=== PATIENT | female | born 1970 | race Caucasian/White ===

== ENCOUNTER 2017-05-21 12:10 | Emergency (ER) | payer OTHER ==
[2017-05-21 14:29] VITALS: BP 0/0
== END 2017-05-21 14:28 | disposition left against medical advice (07) ==
LOC: ED 12:10
DX: S69.91XA Unspecified injury of right wrist, hand and finger(s), initial encounter (principal); X58.XXXA Exposure to other specified factors, initial encounter; Y92.9 Unspecified place or not applicable; Z53.21 Procedure and treatment not carried out due to patient leaving prior to being seen by health care provider
CPT/HCPCS: 99281

== ENCOUNTER 2019-09-03 10:07 | Observation (INO) | payer SELFPAY ==
--- NOTE | 2019-09-03 10:38 | ED ---
HPI Chest Pain - HPI Summary HPI Summary: This patient is a 48 year old female presenting to [facility] with a cheif complaint of bilateral arm pain. She states 2 days ago she experienced chest pain and diaphoresis with left arm pain throughout her arm. She states the chest pain and diaphoresis resolved but the arm pain remains, with the pain now in both shoulders and arms. She rates her pain 6/10 in severity. She denies headache and neck pain. No Home Medications - History of Current Complaint Chief Complaint: EDExtremityUpper Time Seen by Provider: 09/03/19 10:31 Hx Obtained From: Patient Onset/Duration: Started Days Ago Timing: Lasting Days Pain Intensity: 6 Pain Scale Used: 0-10 Numeric Associated Signs and Symptoms: Positive: Chest Pain, Diaphoresis - Allergy/Home Medications Allergies/Adverse Reactions: Allergies Allergy/AdvReac Type Severity Reaction Status Date / Time codeine Allergy Unknown Verified 09/03/19 10:38 Reaction Details diphenhydramine Allergy Unknown Verified 09/03/19 10:38 [From Benadryl] Reaction Details orange (food color) Allergy Headache Verified 09/03/19 16:21 Home Medications: Home Medications NK [No Home Medications Reported] 09/03/19 [History Confirmed 09/03/19] PMH/Surg Hx/FS Hx/Imm Hx Cardiovascular History: Reports: Other Cardiovascular Problems/Disorders - Heart murmur EENT History: Denies: Hx Deafness Neurological History: Denies: Hx Dementia - Surgical History Surgery Procedure, Year, and Place: Cholecystectomy Infectious Disease History: No Infectious Disease History: Denies: Traveled Outside the [place] in Last 30 Days - Family History Known Family History: Negative: Seizure Disorder - Social History Alcohol Use: None Substance Use Type: Reports: None Smoking Status (MU): Never Smoked Tobacco Review of Systems Positive: Skin Diaphoresis Positive: Chest Pain - s Positive: Other - Bilateral upper extremity pain. Neg: Neck pain. Negative: Headache All Other Systems Reviewed And Are Negative: Yes Physical Exam - Summary Physical Exam Summary: VITAL SIGNS: Reviewed. GENERAL: Patient is an obese FEMALE who is lying comfortable in the stretcher. Patient is in distress secondary to pain. HEAD AND FACE: No signs of trauma. No ecchymosis, hematomas or skull depressions. No sinus tenderness. EYES: PERRLA, EOMI x 2, No injected conjunctiva, no nystagmus. EARS: Hearing grossly intact. Ear canals and tympanic membranes are within normal limits. MOUTH: Oropharynx within normal limits. NECK: Supple, trachea is midline, no adenopathy, no JVD, no carotid bruit, no c- spine tenderness, neck with full ROM. CHEST: Symmetric, no tenderness at palpation. LUNGS: Clear to auscultation bilaterally. No wheezing or crackles. CVS: Regular rate and rhythm, S1 and S2 present, no murmurs or gallops appreciated. ABDOMEN: Soft, non-tender. No signs of distention. No rebound, no guarding, and no masses palpated. Bowel sounds are normal. EXTREMITIES: FROM in all major joints, no edema, no cyanosis or clubbing. Good pulses, good capillary refill, and good pulses in the bilateral upper extremities. NEURO: Alert and oriented x 3. No acute neurological deficits. Speech is normal and follows commands. SKIN: Dry and warm. Triage Information Reviewed: Yes Vital Signs On Initial Exam: Initial Vitals Temp Pulse Resp BP Pulse Ox 97.5 F 88 20 95/61 98 09/03/19 10:22 09/03/19 10:22 09/03/19 10:22 09/03/19 10:22 09/03/19 10:22 Vital Signs Reviewed: Yes Procedures - Sedation Patient Received Moderate/Deep Sedation with Procedure: No Diagnostics - Vital Signs Vital Signs Temp Pulse Resp BP Pulse Ox 09/03/19 10:22 97.5 F 86 28 95/61 93 - Laboratory Result Diagrams: 09/03/19 16:19 09/03/19 16:19 Lab Statement: Any lab studies that have been ordered have been reviewed, and results considered in the medical decision making process. - CT Cervical Spine CT Interpretation Completed By: Radiologist Summary of CT Findings: Nonspecific straightening of the normal cervical lordosis and mild loss of interverebral disc height in this otherwise nonacute, noncontrast CT of the cervical spine. ED Provider has reviewed this report. CTA Chest/Abd/Pel CT Interpretation Completed By: Radiologist Summary of CT Findings: 1. No pathologic aneurysm or acute dissecction of the aorta or large branch vessels. 2. Hepatic steatosis. ED Provider has reviewed this report. - EKG 1014 Cardiac Rate: NL - 82 BPM EKG Rhythm: Sinus Rhythm Summary of EKG Findings: No ST elevations. ED Physician has reviewed and interpreted this EKG. Chest Pain Course/Dx - Course Assessment/Plan: This patient is a 48 year old female presenting to [facility] with a chief complaint of bilateral arm pain. She states 2 days ago she experienced chest pain and diaphoresis with left arm pain throughout her arm. She states the chest pain and diaphoresis resolved but the arm pain remains, with the pain now in both shoulders and arms. She rates her pain 6/10 in severity. She denies headaches and neck pain. In the ED course the patient was placed in a urologist, IV access was obtained, IV fluids started and she was given aspirin for chest pressure. Blood test w/o a significant abnormality except for sodium 134, glucose 141, troponin 0.05, CRP is 14.5. EKG shows a normal sinus rhythm without any ST elevation. Cervical spine CT IMPRESSION: NONSPECIFIC STRAIGHTENING OF THE NORMAL CERVICAL LORDOSIS AND MILD LOSS OF. INTERVERTEBRAL DISC HEIGHT IN THIS OTHERWISE NONACUTE, NONCONTRAST CT OF THE CERVICAL. SPINE. CTA chest chest abdomen and pelvis IMPRESSION: 1. No pathologic aneurysm or acute dissection of the aorta or large branch vessels. 2. Hepatic steatosis. I discuss my physical exam and test results with Dr. Denton from the hospitalist services and he agrees to admit the patient to his services. The patient is hemodynamically stable alert and oriented x 3. - Chest Pain Differential Diagnosis/HQI/PQRI: Acute OR, Angina, CHF, Chest Wall, GI Disease, Lower Respiratory Infection, Pulmonary Edema - Diagnoses Provider Diagnoses: Chest pain, Elevated troponin Discharge ED - Sign-Out/Discharge Documenting (check all that apply): Patient Departure - Admission, accepted by Dr. Denton, Hospitalist - Discharge Plan Condition: Stable Disposition: ADMITTED TO [facility] - Billing Disposition and Condition Condition: STABLE Disposition: Admitted to [facility] - Attestation Statements Document Initiated by Scribe: Yes Documenting Scribe: Tuan Figueredo Provider For Whom Rishi is Documenting (Include Credential): Jeison Acosta MD Scribe Attestation: Tuan Crockett, scribed for Jeison Acosta MD on 09/03/19 at 2101. Scribe Documentation Reviewed: Yes Provider Attestation: The documentation as recorded by the Tuan angel accurately reflects the service I personally performed and the decisions made by me, Jeison Acosta MD Status of Scribe Document: Viewed
[2019-09-03 10:42] LABS: ABS Lymphocytes 1.5 10^3/ul (1.0-4.8); ABS Monocytes 0.5 10^3/ul (0-0.8); ABS Neutrophils 6.4 10^3/ul (1.5-7.7); Eosinophil % 0.4 %; Hematocrit 46 % (35-47); Hemoglobin 15.8 g/dL (12.0-16.0); Mean Corpuscular HGB Conc 34 g/dL (31-36); Mean Corpuscular Hemoglobin 32 pg (27-31); Mean Corpuscular Volume 94 fL (80-97); Nucleated Red Blood Cells % 0.2; Platelet Count 265 10^3/uL (150-450); Red Cell Distribution Width 15 % (10-15); White Blood Count 8.5 10^3/uL (3.5-10.8)
[2019-09-03 10:51] LABS: INR 0.98 (0.82-1.09)
[2019-09-03 10:58] LABS: ALT 25 U/L (7-52); AST 17 U/L (13-39); Albumin 4.3 g/dL (3.2-5.2); Albumin/Globulin Ratio 1.5 (1-3); Alkaline Phosphatase 95 U/L (34-104); Anion Gap 7 mmol/L (2-11); Blood Urea Nitrogen 12 mg/dL (6-24); CO2 Carbon Dioxide 24 mmol/L (22-32); Calcium 9.7 mg/dL (8.6-10.3); Chloride 103 mmol/L (101-111); EGFR African American 91.9 (>60); EGFR Non-African American 75.9 (>60); Globulin 2.9 g/dL (2-4); Glucose 141 mg/dL (70-100); Potassium 4.2 mmol/L (3.5-5.0); Sodium 134 mmol/L (135-145); Total Protein 7.2 g/dL (6.4-8.9)
[2019-09-03 11:04] LABS: Troponin I 0.05 ng/mL (<0.03)
[2019-09-03] MEDS ORDERED: NS 0.9% 1000 ML** 1,000 ML IV.FLUID IV ONE (11:35)
[2019-09-03 11:48] LABS: Activated Partial Thrombo Time 32.7 seconds (26.0-38.0)
[2019-09-03 11:53] LABS: C Reactive Protein 14.54 mg/L (<8.01); Creatine Kinase 57 U/L (10-223)
[2019-09-03] MEDS ORDERED: Iohexol 350* (CONTRAST) 500 ML MDV IV ONE (11:55)
[2019-09-03] MEDS ORDERED: Aspirin 81 mg CHEW TAB* 81 MG TAB.CHEW PO ONE (11:57)
[2019-09-03 11:58] LABS: CKMB ng/mL 1.8 ng/mL (0.6-6.3)
[2019-09-03] MEDS ORDERED: Acetaminophen TAB* 325 MG PO PRN (14:16)
[2019-09-03 14:18] LABS: Troponin I 0.08 ng/mL (<0.03)
[2019-09-03] MEDS ORDERED: Enoxaparin(*) 40 MG/0.4 ML SYR SUBCUT SCH (15:00)
[2019-09-03] MEDS ORDERED: Heparin DRIP 25,000 UNITS(*) 25,000 UNITS/500 ML BAG IV SCH (15:00)
--- NOTE | 2019-09-03 16:17 | HP ---
CC: Dr. Maurice * HISTORY AND PHYSICAL: DATE OF ADMISSION: 09/03/19 PRIMARY CARE PROVIDER: Dr. Maurice. ATTENDING PHYSICIAN: Dr. Denton * (dictated by SHERIN Humphreys). CHIEF COMPLAINT: 1. Chest pressure. 2. Bilateral upper extremity pain. HISTORY OF PRESENT ILLNESS: Ms. Pguh is a 48-year-old female with a past medical history of tobacco abuse, CVA x2, obesity, who presented to the ER today with complaints of chest pressure that radiated to bilateral upper extremities. The patient states that 2 days ago she was driving home and she experienced sudden onset left-sided chest pain that lasted approximately 2 minutes without associated shortness of breath or diaphoresis. Pain went away within 2 minutes without any intervention and she had been chest pain free until today when she was sitting on her couch and she started to experience bilateral shoulder and upper extremity pain. She has associated chest pressure , diaphoresis, and weakness without nausea or shortness of breath. Her pain was not positional. She states that her pain was so bad that she called her mother, who then brought her to the ER. She reports that this episode lasted approximately 4 hours and was relieved when she was given 324 mg of aspirin in the ER. She reports that the area is nontender to palpation, and at the time, is unsure if the pain worsened with deep breathing. She reported the pain is a tugging pain and reported that only time an aspirin resolved the pain. She reports that she has not experienced episodes like this in the past. The patient 's HEART score is 4, placing her at moderate risk with 12% to 16.6% risk of MACE. In the ER, the patient received a full workup. CBC was unremarkable. Chemistry shows an elevated glucose of 141. Troponins are 0.05, 0.08. She has a mildly elevated CRP of 14.54, but is afebrile without leukocytosis or symptoms of infection. EKG shows T inversion in lateral leads. CT of the cervical spine is unremarkable. CT of the chest, abdomen, and pelvis unremarkable except for a hepatic steatosis. Notably, the CTA was not done according to PE protocol, although there are reportedly no definite filling defects of the mainstem or lobar pulmonary arteries. The patient received 324 mg of oral aspirin in the ER. The hospitalist team was asked to evaluate the patient for admission. PAST MEDICAL HISTORY: 1. The patient reports she has a history of palpitations and history of what sounds like regurgitation that she reports "went away" on its own without intervention. 2. CVA x2, last in 2017. 3. Obesity. 4. Tobacco abuse. PAST SURGICAL HISTORY: Cholecystectomy and tubal ligation. HOME MEDICATIONS: None. DRUG ALLERGIES: CODEINE, DIPHENHYDRAMINE. FAMILY HISTORY: No family history of CAD, CVA, diabetes, cancer. SOCIAL HISTORY: The patient smokes half a pack cigarettes daily. She has approximately 32-pack year smoking history. She rarely uses alcohol, approximately once per year. She does not use illicit drugs. 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 She has 3 children and lives with her . In the event that she is unable to make her own medical decisions, she has appointed her mother, Shannan Strong, to be her surrogate decision maker. REVIEW OF SYSTEMS: A 14-point review of systems has been performed and all the pertinent positives and negatives are in the HPI. All other systems are negative. PHYSICAL EXAMINATION GENERAL: Ms. Pugh is a well-developed, well-nourished, obese middle-aged white woman, who is sitting up in bed. She appears to be in no acute distress. She is pleasant and cooperative and appropriate. She appears comfortable. HEENT: PERRL. EOMI. Visual fernandez are grossly intact. Sclerae is nonicteric , without injection. Hearing is grossly intact. Oral mucous membranes are moist. There are no lesions. The pharynx is clear. Tongue is at midline. Palate elevates symmetrically. The patient has dentures in place. PULMONARY: Symmetrical chest expansion without use of accessory muscles. Clear to auscultation bilaterally without rhonchi, wheezes, or rales. CARDIOVASCULAR: Heart sounds distant with regular rate and rhythm and S1, S2 present. There are no murmurs, rubs, clicks, or gallops. There is no JVD or peripheral edema. Chest wall nontender to palpation. ABDOMEN: Obese. Bowel sounds in all quadrants. Soft and nontender to palpation. MUSCULOSKELETAL: Tenderness to palpation at bilateral shoulders and medial border of the scapula. Full range of motion. NEURO: The patient is awake. She is alert and oriented x3. Cranial nerves II through XII are grossly intact. She is able to move all of her extremities. Her motor strength is 5/5 bilaterally in upper and lower extremities. DIAGNOSTIC STUDIES/LAB DATA: 1. CBC: WBC 8.5, RBC 4.9, hemoglobin 15.8, hematocrit 46, MCV 94, platelets 265. 2. CMP: Sodium 134, potassium 4.2, chloride 103, carbon dioxide 24, BUN 12, creatinine 0.80, glucose 141. Troponin 0.05, 0.08. CRP 14.54. 3. EKG: Rate 82; flat T-wave in I, II, III; inverted T-wave in V4, V5, V6. No ST elevation or depression. 4. CT cervical spine without; impression: Nonspecific straightening of the normal cervical lordosis and mild loss of intervertebral disk height in this otherwise nonacute noncontrast CT of the cervical spine. 5. CTA chest, abdomen and pelvis, impression: No pathologic aneurysm or acute dissection of the aorta or large branch vessels. Hepatic steatosis. Noted in the body of this report "though this CTA was not done according to a PE protocol , there are no definite filling defects of the mainstem or lobar pulmonary arteries." ASSESSMENT AND PLAN: 1. Ms. Pugh is a 48-year-old female with past medical history of obesity, tobacco abuse, cerebrovascular accident, who presented to the ER today with complaints of chest pressure, bilateral upper extremity pain, and was found to have EKG abnormalities in the inferolateral leads and elevated troponins. The patient has been started on heparin drip for possible [id number] myocardial infarction. Cardiology recommends heparin drip, nuclear medicine stress test in the morning, and echo will also be obtained. The patient will be placed on low dose beta-maria esther and aspirin 81 mg. Although a CTA pulmonary embolism protocol of chest was not done, CTA of the chest, abdomen, and pelvis per report that there are no definite filling defects in mainstem or lobar pulmonary arteries; there is no aneurysm or dissection of the aorta noted; therefore, these are no longer on the differential. In the meantime, the patient will be admitted to the tele floor and will continue to be monitored. Recommend cardiology consult if there are abnormalities on stress test or echo. 2. Reported history of palpitations and regurgitation. Unsure of any further details or location of valves, but the patient reports a history of regurgitation and palpitations. She has been placed on telemetry. We will obtain an echocardiogram to see if we can further clarify. 3. Tobacco abuse. Nicotine gum placed on MAR. 4. Obesity. BMI 50.5 noted. 5. DVT prophylaxis: According to DVT Risk Assessment, the patient scores 2, placing her at moderate risk. She has been started on a heparin drip. 6. Code status: Full code. TIME SPENT: Approximately 60 minutes was spent on this admission, greater than half that time was spent [id number] with the patient obtaining history, performing physical, and reviewing the plan of care. The case has been discussed with my attending, Dr. Denton, who is in agreement with the plan of care. SHERIN ALCANTAR [id number]/CPS #: [id number] PARMINDER
[2019-09-03 16:38] LABS: ABS Basophils 0.1 10^3/ul (0-0.2); ABS Lymphocytes 2.2 10^3/ul (1.0-4.8); ABS Monocytes 0.4 10^3/ul (0-0.8); ABS Neutrophils 6.2 10^3/ul (1.5-7.7); Eosinophil % 0.5 %; Hematocrit 46 % (35-47); Hemoglobin 15.5 g/dL (12.0-16.0); Lymphocyte % 24.4 %; Mean Corpuscular HGB Conc 34 g/dL (31-36); Mean Corpuscular Hemoglobin 32 pg (27-31); Mean Corpuscular Volume 94 fL (80-97); Mean Platelet Volume 8.2 fL (7.4-10.4); Platelet Count 259 10^3/uL (150-450); Red Blood Count 4.87 10^6 /uL (3.70-4.87); Red Cell Distribution Width 15 % (10-15); White Blood Count 8.9 10^3/uL (3.5-10.8)
[2019-09-03] MEDS: Heparin VIAL(*) 5000 UNITS/ML VIAL (FIVE THOUSAND) IV PRN ×2 (16:41→23:47)
[2019-09-03 16:55] LABS: Blood Urea Nitrogen 10 mg/dL (6-24); EGFR African American 85.7 (>60); EGFR Non-African American 70.8 (>60)
[2019-09-03 17:10] LABS: Troponin I 0.09 ng/mL (<0.03)
[2019-09-03 19:20] LABS: Troponin I 0.07 ng/mL (<0.03)
[2019-09-03] MEDS: Metoprolol Tartrate TAB* 25 MG PO SCH (20:37)
[2019-09-03 23:30] LABS: Troponin I 0.05 ng/mL (<0.03)
[2019-09-04 05:49] LABS: ABS Basophils 0.1 10^3/ul (0-0.2); ABS Lymphocytes 2.1 10^3/ul (1.0-4.8); ABS Monocytes 0.4 10^3/ul (0-0.8); ABS Neutrophils 4.6 10^3/ul (1.5-7.7); Eosinophil % 0.6 %; Hematocrit 43 % (35-47); Hemoglobin 14.5 g/dL (12.0-16.0); Lymphocyte % 28.8 %; Mean Corpuscular HGB Conc 34 g/dL (31-36); Mean Corpuscular Hemoglobin 32 pg (27-31); Mean Corpuscular Volume 95 fL (80-97); Nucleated Red Blood Cells % 0.1; Platelet Count 231 10^3/uL (150-450); Red Blood Count 4.54 10^6 /uL (3.70-4.87); Red Cell Distribution Width 15 % (10-15); White Blood Count 7.2 10^3/uL (3.5-10.8)
[2019-09-04] MEDS: Metoprolol Tartrate TAB* 25 MG PO SCH (08:54)
[2019-09-04] MEDS ORDERED: Aspirin 81 mg CHEW TAB* 81 MG TAB.CHEW PO SCH (09:00)
[2019-09-04] MEDS ORDERED: Nicotine* 2MG (FRUIT FLAVOR) GUM PO PRN (09:14)
--- NOTE | 2019-09-04 10:29 | ECHO ---
*[facility]* [place] [address] Fax #: [phone] Transthoracic Echocardiogram Patient: Gertrudis Pugh : 1970 Study Date: 09/04/2019 Age: 48 Gender: F HR: 60 bpm Height: 59 in /149.9 cm BSA: 2.03 m^2 Weight: 249.5 lb /113.4 kg BMI: 50.5 kg/m^2 *Football Coach: * Luisa Woodward [facility] *Referring Physician: * Laly LondonoReading Physician: * Paul Goff MD Indications: Chest Pain, unspecified. Abnormal EKG. History: Cerebrovascular accident. Risk factors: Current tobacco use. Obese. Conclusions Summary: - Left ventricle: Systolic function is normal. The estimated ejection fraction is 55-60%. Wall motion is normal; there are no regional wall motion abnormalities. - Mitral valve: There is no significant regurgitation. - Aortic valve: There is no evidence of stenosis. - Tricuspid valve: There is no significant regurgitation. - Pulmonary arteries: Systolic pressure can not be accurately estimated. - Study data: No prior study is available for comparison. Study data: Transthoracic echocardiogram. Procedure: Transthoracic echocardiography was performed. Image quality was fair. Complete 2D, spectral Doppler, and color flow Doppler. Location: Bedside. Patient status: Inpatient. Patient room number: 451. No prior study is available for comparison. Rhythm: Normal sinus rhythm. Findings Left ventricle: The cavity size is mildly reduced. Wall thickness is mildly increased. Systolic function is normal. The estimated ejection fraction is 55-60%. Wall motion is normal; there are no regional wall motion abnormalities. There is no consistent Doppler evidence of clinically significant diastolic dysfunction. Right ventricle: The cavity size is normal. Wall thickness is increased. Systolic function is normal. Left atrium: The atrium is normal in size. Right atrium: The atrium is normal in size. Mitral valve: The leaflets are normal thickness. There is no evidence of stenosis. There is no significant regurgitation. Aortic valve: The leaflets are normal thickness. There is no evidence of stenosis. There is no significant regurgitation. Tricuspid valve: The leaflets are normal thickness. There is no evidence of stenosis. There is no significant regurgitation. Pulmonic valve: Not well visualized. There is no significant regurgitation. Aorta: Aortic root: The aortic root is poorly visualized. Aortic arch: The aortic arch is appears normal. Pericardium: There is no significant pericardial effusion. Pulmonary arteries: Systolic pressure can not be accurately estimated. Systemic veins: Inferior vena cava: The vessel is normal in size. There is (>= 50%) respiratory change in the IVC dimension. Measurements Left ventricle Value Ref Right atrium Value Ref AUDREY, LAX (L) 3.3 cm 3.8 - 5.2 SI dim, ES 4.1 cm 3.4 - 5.3 ESD, LAX (L) 2.1 cm 2.2 - 3.5 ML dim, ES, A4C 3.3 cm 2.6 - 4.4 FS, LAX 36 % 27 - 45 Estimated RAP 8 mm Hg --------- PW, ED, LAX (H) 1.0 cm 0.6 - 0.9 E', lat jud, TDI 10.4 cm/sec >=10.0 Aortic valve Value Ref E/e', lat jud, 7 Jud diam, ED 1.7 cm ------ --- TDI Peak v, S 1.32 m/sec --------- E', med jud, TDI 8.8 cm/sec >=7.0 VTI, S 24.4 cm --- ------ E/e', med jud, 8 Mean grad, S 4.0 mm Hg ------ --- TDI Peak grad, S 7.0 mm Hg --------- E', avg, TDI 9.6 cm/sec LVOT/AV, VTI ratio 0.94 ------ --- E/e', avg, TDI 7 <=14 Mitral valve Value Ref LVOT Value Ref Peak E 0.7 m/sec --------- Peak radha, S 1.1 m/sec Peak A 0.55 m/sec --------- VTI, S 23.0 cm Decel time 243 ms --------- Peak grad, S 5 mm Hg Peak E/A ratio 1.3 --------- Mean grad, S 3 mm Hg Pulmonic valve Value Ref Ventricular septum Value Ref Peak v, S 0.7 m/sec --------- IVS, ED (H) 1.1 cm 0.6 - 0.9 Peak grad, S 2.0 mm Hg --------- Right ventricle Value Ref Aortic arch Value Ref AUDREY, LAX 2.1 cm Arch diam 2.3 cm --------- AUDREY minor ax, 2.1 cm 1.9 - 3.5 A4C mid Decending aorta Value Ref Petra peak radha 0.69 m/sec --------- Left atrium Value Ref AP dim, ES 2.80 cm 2.70 - Inferior vena cava Value Ref 3.80 Diam 1.9 cm --------- ML dim, A4C 3.8 cm SI dim, A4C 4.9 cm Vol/bsa, ES, A/L 17 ml/m^2 16 - 34 Legend: (L) and (H) vini values outside specified reference range. Prepared and electronically signed by Paul Goff MD 09/04/2019 10:29
[2019-09-04 14:00] VITALS: BP 132/75
--- NOTE | 2019-09-05 09:23 | DS ---
CC: Dr. Maurice * DISCHARGE SUMMARY: DATE OF ADMISSION: 09/03/19 DATE OF DISCHARGE: 09/04/19 PRIMARY CARE PROVIDER: Dr. Maurice. ATTENDING PHYSICIAN: Dr. Denton * (dictated by SHERIN Humphreys). PRIMARY DIAGNOSES: 1. Elevated troponins, possible non-ST elevation myocardial infarction. 2. Hyperlipidemia. SECONDARY DIAGNOSES: 1. Cerebrovascular accident x2, last cerebrovascular accident in 2017. 2. Tobacco abuse. 3. Obesity. 4. Reported history of palpitations and possible bowel regurgitation that the patient reports resolved without intervention. STUDIES WHILE IN THE HOSPITAL: 1. CT cervical spine, impression: Nonspecific straining of the normal cervical lordosis and mild loss of intravertebral disk height in this otherwise nonacute, noncontrast CT of the cervical spine. 2. CTA chest, abdomen, and pelvis: No pathological aneurysm or acute dissection of the aorta or large branch vessels. Hepatic steatosis. 3. Transthoracic echocardiogram: LV systolic function normal. Estimated EF is 55% to 60%. Wall motion normal. No regional wall motion abnormalities. No significant MR. No evidence of . No significant TR. Pulmonary artery systolic pressure cannot be accurately estimated. DISCHARGE MEDICATIONS: Home medications: Aspirin 81 mg p.o. daily. New home medications: None. Changed home medications: None. HISTORY OF PRESENT ILLNESS/HOSPITAL COURSE: Ms. Pugh is a 48-year-old female with a past medical history of CVAs, obesity, tobacco abuse, who presented to the ER on 09/03/19 with complaints of chest pain radiating to bilateral upper extremities that was intermittent in nature. For full and complete details, please see the history and physical dictated on 09/03/19, but in short, the patient presents with the above symptoms. She arrived at the ER. She was found to have a HEART score of 4. Her troponins were elevated. She had some abnormalities on EKG including flat T-wave in 1, 2, 3. Inverted T-wave in V5 to V6. The hospitalist team admitted the patient. Troponins were trended and peaked at 0.09 and then trended down. Hemoglobin A1c was obtained, but is not available at the time of this dictation. LDL cholesterol was repeated in the morning and was 123. An echocardiogram was obtained and showed no regional wall motion abnormality with preserved ejection fraction of 55% to 60%. Recommendations were made for a nuclear medicine stress test. The patient received the initial part of her stress test and this was reportedly a nondiagnostic maximum stress test with reduced exercise capacity and therefore it was recommended that this become a 2-day stress test and nuclear med portion was planned to be completed the following day. The patient is adamant that she be discharged at this time. We had a long discussion about the recommendation that she remain inpatient as she could be having a heart attack. She refuses to stay and has requested to leave against medical advice. We had a long discussion about recommendations which included continued inpatient stay and workup for NSTEMI. The patient declines. There was discussion had about possible risks of leaving against medical advice which include worsening of heart function, worsening of heart attack, or even . The patient understands her risks and continues to request to leave against medical advice. She has been instructed to follow up with her primary care provider regarding further cardiac workup for the treatment for hyperlipidemia and results of hemoglobin A1c. At the time of discharge, the patient denies chest pain. She reports that she has had no arm pain or chest pain since arrival on the floor. She has been up walking and has had no difficulties. Again the patient is requesting to leave against medical advice and understands the risks of doing so. PHYSICAL EXAMINATION: Vital Signs: Temperature 97.3 temporal, heart rate 69, respiratory rate 16, oxygen saturation 94% on room air, blood pressure 132/75. General: Ms. Pugh is a well-developed, well-nourished, obese, middle-aged white woman. She is standing in her room. She appears aggravated but in no acute distress. HEENT: PERRL, EOMI. Nonicteric sclerae. Hearing is grossly intact. Oral mucous membranes are moist. There are no lesions. Oropharynx is clear. Tongue is at midline. Palate elevates symmetrically. Cardiovascular: Regular rate and rhythm with S1 and S2 present. No murmurs, rubs, clicks, or gallops. There is no JVD or peripheral edema. Pulmonary: Symmetrical chest expansion, no use of accessory muscles. Clear to auscultation bilaterally without rhonchi, wheeze, or rales. No digital clubbing or cyanosis. Abdomen: Obese, bowel sounds in all quadrants. Soft and nontender to palpation. DISCHARGE PLAN: Ms. Pugh will be discharged to home. CONDITION: stable. DISPOSITION: Against medical advice. DIET: Heart healthy. ACTIVITY: As tolerated. EDUCATION: 1. Follow up with primary care provider as soon as possible. Discuss recent hospitalization, need for completion of cardiac workup, hemoglobin A1c results. 2. LDL cholesterol was elevated to 123. You would benefit from beginning stent therapy. Please discuss with primary care provider. 3. You have decided to leave against medical advice. Please return to the ER or nearest hospital if you experience any return or worsening of chest pain or discomfort, shortness of breath, dizziness, lightheadedness, loss of consciousness, high fevers, chills, night sweats, or any other worrisome signs or symptoms. This is a summarized report of a complex medical history and hospital stay, for further details please see the entire medical record. TIME SPENT: Approximately 35 minutes were spent on this discharge, greater than half that time was spent [id number] with the patient discussing discharge plans and instructions. SHERIN ALCANTAR [id number]/[facility] #: [id number] PARMINDER
== END 2019-09-04 15:24 | disposition home or self-care (01) ==
LOC: ED 10:07 → MEDTELE 14:16
PROVIDERS: ADMIT Hospitalist; ATTEND Hospitalist
DX: R79.89 Other specified abnormal findings of blood chemistry (principal); E78.5 Hyperlipidemia, unspecified; Z86.73 Personal history of transient ischemic attack (TIA), and cerebral infarction without residual deficits; F17.210 Nicotine dependence, cigarettes, uncomplicated; E66.9 Obesity, unspecified; R00.2 Palpitations; M79.602 Pain in left arm; M79.601 Pain in right arm; Z88.5 Allergy status to narcotic agent; Z88.8 Allergy status to other drugs, medicaments and biological substances; Z68.43 Body mass index [BMI] 50.0-59.9, adult; Z86.79 Personal history of other diseases of the circulatory system; Z79.82 Long term (current) use of aspirin
CPT/HCPCS: 36415; 71275; 72125; 74174; 78451; 78452; 80053; 80061; 82550; 82553; 82565; 84484; 84520; 85025; 85610; 85730; 86140; 93005; 93017; 93306; 96372; 99284; A9270-GY; A9502; G0378; J1644; Q9967